=== PATIENT | female | born 1955 | race Hispanic/Latino ===

== ENCOUNTER 2018-09-07 04:05 | Inpatient (IN) | payer SELFPAY ==
[2018-09-07] VITALS (7 sets, daily range): BP systolic 124–174; BP diastolic 58–79
[~2018-09-07] VITALS: Ht 165.1 cm; Wt 77.1 kg
[2018-09-07] MEDS ORDERED: PANTOPRAZOLE 40 MG 10ML VIAL IV STA (04:13)
[2018-09-07] MEDS ORDERED: ONDANSETRON HCL INJ 2MG/ML 2ML 2 MG/ML VIAL IV STA (04:13)
[2018-09-07] MEDS ORDERED: SODIUM CHLORIDE 0.9% 1000ML 1,000 ML IV ONE (04:15)
[2018-09-07] MEDS ORDERED: LIDOCAINE VISC 2% SOLN 15 ML UDC PO ONE (04:15)
[2018-09-07] MEDS ORDERED: MAGNESIUM/ALUMINUM/SIMETHICONE 30 ML UDC PO ONE (04:15)
[2018-09-07] MEDS ORDERED: BELLADONNA ALK/PHENOBARBITAL 5 ML UDC PO ONE (04:15)
[2018-09-07 04:36] LABS: BASOPHILS % 0.3 % (0.0-1.0); EOSINOPHILS # (AUTO) 0.1 (0.0-0.4); EOSINOPHILS % 0.8 % (0.0-6.0); HEMATOCRIT 43.5 % (34.2-44.1); LYMPHOCYTES # (AUTO) 1.7 (1.0-3.2); MEAN CORPUSCULAR HEMOGLOBIN 30.8 pg (28-32); MEAN CORPUSCULAR HGB CONC 34.5 g/dL (31-35); MEAN CORPUSCULAR VOLUME 89.3 fL (81-99); MONOCYTES # (AUTO) 0.3 (0.2-0.8); MONOCYTES % 3.3 % (4.4-11.3); NEUTROPHILS # (AUTO) 5.7 (2.1-6.9); NEUTROPHILS % 73.1 % (38.7-80.0); PLATELET COUNT 217 x10e3/uL (140-360); RED BLOOD COUNT 4.87 x10e6/uL (3.6-5.1); RED CELL DISTRIBUTION WIDTH 12.7 % (11.7-14.4)
[2018-09-07 04:39] LABS: CLARITY,URINE CLEAR (CLEAR); COLOR,URINE YELLOW (YELLOW)
[2018-09-07 04:40] LABS: BILIRUBIN,URINE NEGATIVE (NEGATIVE); KETONES,URINE NEGATIVE (NEGATIVE); LEUKOCYTE ESTERASE ,URINE TRACE (NEGATIVE); NITRITE,URINE NEGATIVE (NEGATIVE); PROTEIN,URINE DIPSTICK NEGATIVE (NEGATIVE); URINE UROBILINOGEN 0.2 mg/dL (0.2 - 1)
[2018-09-07 04:54] LABS: ALANINE AMINOTRANSFERASE 24 IU/L (0-55); ALBUMIN 4.2 g/dL (3.5-5.0); ALBUMIN/GLOBULIN RATIO 1.1 (0.8-2.0); ALKALINE PHOSPHATASE 146 IU/L (40-150); AMYLASE 169 U/L (25-125); ANION GAP 12.6 mmol/L (8-16); BLOOD UREA NITROGEN 11 mg/dL (7-26); BUN/CREATININE RATIO 14 (6-25); CALCIUM 10.6 mg/dL (8.4-10.2); CARBON DIOXIDE 25 mmol/L (22-29); CHLORIDE 103 mmol/L (98-107); CREATINE KINASE 83 IU/L (29-168); CREATININE, SERUM 0.81 mg/dL (0.57-1.11); EST GLOMERULAR FILTRATION RATE > 60 ML/MIN (60-); GLUCOSE 142 mg/dL (74-118); LIPASE 52 U/L (8-78); POTASSIUM 3.6 mmol/L (3.5-5.1); SODIUM 137 mmol/L (136-145)
[2018-09-07 05:06] LABS: BACTERIA,URINE RARE /HPF
[2018-09-07 05:07] LABS: EPITHELIAL CELLS,URINE RARE /LPF
--- NOTE | 2018-09-07 06:57 | Diagnostic Imaging Report ---
HISTORY: ^UPPER ABD PAIN ^Y TECHNIQUE: Selected images from limited abdominal ultrasound provided for INTERPRETATION: COMPARISON: None. FINDINGS: Pancreas: Visualized portions are increased in echotexture without mass or ductal dilatation. Liver: Measures 15.1 cm in sagittal plane. The echotexture is normal. No mass in the visualized portions. Portal Vein: Measures 0.8 cm. Proper directional flow on spectral Doppler interrogation. Biliary Tree: Normal Gallbladder: Gallstone in the gallbladder neck measures 2.3 cm. The gallbladder wall measures 4 mm with small amount of pericholecystic fluid. Sonographic Masters sign is negative. CBD: 0.3 cm. Right Kidney: 10.8 cm in greatest length. The echotexture is normal. There is no evidence for mass. There is no collecting system dilatation or evidence of obstruction. No renal calculi evident. No adjacent free fluid or fluid collections. Visualized IVC and aorta are normal. There is no free fluid. IMPRESSION: 1. Gallstone in the gallbladder neck with gallbladder wall thickening and small amount of pericholecystic fluid concerning for acute cholecystitis. No intrahepatic or extra hepatic biliary ductal dilatation. 2. Pancreas lipomatosis. Signed by: Dr. Virginia Graham MD on 09/07/2018 6:54 AM
[2018-09-07] MEDS ORDERED: HYDROMORPHONE 1MG/1ML INJ IV PRN (07:15)
[2018-09-07] MEDS ORDERED: ONDANSETRON HCL INJ 2MG/ML 2ML 2 MG/ML VIAL IV PRN ×2 (07:15→17:30)
--- OUTSIDE RECORDS SUMMARY | 2018-09-07 07:24 | XMS REPORT ---
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 Allergies, Adverse Reactions, Alerts This patient has no known allergies or adverse reactions. Medications This patient has no known medications. Results Test Description Test Time Test Comments Text Results Atomic Results Result Comments US GALLBLADDER 2018-09-07 06:49:00 [place] [address] Patient Name: TOMÁS SWANSON MR #: [id number] : 1955 Age/Sex: 63/F Req #: [id number] Adm Physician: Ordered by: AZAM QUINTANILLA MD Report #: [id number] Location: ER Room/Bed: Procedure: [id number] US/US GALLBLADDER Exam Date: Exam Time: REPORT STATUS: Signed HISTORY: UPPER ABD PAIN Y TECHNIQUE: Selected images from limited abdominal ultrasound provided for INTERPRETATION: COMPARISON: None. FINDINGS: Pancreas: Visualized portions are increased in echotexture without mass or ductal dilatation. Liver: Measures 15.1 cm in sagittal plane. The echotexture is normal. No mass in the visualized portions. Portal Vein: Measures 0.8 cm. Proper directional flow on spectral Doppler interrog ation. Biliary Tree: Normal Gallbladder: Gallstone in the gallbladder neck measures 2.3 cm. The gallbladder wall measures 4 mm with small amount of pericholecystic fluid. Sonographic Masters sign is negative. CBD: 0.3 cm. Right Kidney: 10.8 cm in greatest length. The echotexture is normal. There is no evidence for mass. There is no collecting system dilatation or evidence of obstruction. No renal calculi evident. No adjacent free fluid or fluid collections. Visualized IVC and aorta are normal. There is no free fluid. IMPRESSION: 1. Gallstone in the gallbladder neck with gallbladder wall thickening and small amount of pericholecystic fluid concerning for acute cholecystitis. No intrahepatic or extra hepatic biliary ductal dilatation. 2. Pancreas lipomatosis. Signed by: Dr. Nazario Graham MD on 09/07/2018 6:54 AM Dictated By: NAZARIO GRAHAM MD 3 Transcribed By: MARION on 09/07/18653 COPY TO: AZAM QUINTANILLA MD
[2018-09-07] MEDS ORDERED: HYDROMORPHONE 2MG/ML 2 MG/ML ML IV PRN (07:45)
[2018-09-07] MEDS: CEFOXITIN 1GM/ NS 50ML 50 ML IV SCH ×3 (08:45→21:13)
[2018-09-07] MEDS: SODIUM CHLORIDE 0.9% 1000ML 1,000 ML IV SCH ×3 (08:45→23:46)
[2018-09-07] MEDS: METRONIDAZOLE 500MG/NS 100ML IV SCH ×2 (09:31→12:08)
--- NOTE | 2018-09-07 12:00 | NUR ---
Received patient from ER. Patient A/O X3, even respirations on RA. Bowel sounds active, skin intact, no edema. Right AC 20 gauge IV with NS @ 125 mls/hr. Patient NPO at this time until Dr. Collier makes decision on POC. Patient is ambulatory with standby assist. Primarily vietnamese speaking with daughter at bedside. Discomfort in abdomen, pain 2/10. Call light in reach, will continue to monitor.
--- NOTE | 2018-09-07 15:40 | NUR ---
Patient on regular diet at this time and will be NPO at midnight for procedure tomorrow.
[2018-09-07] MEDS ORDERED: HYDRALAZINE HCL 20 MG/ML VIAL IV PRN (17:30)
[2018-09-07] MEDS ORDERED: ACETAMINOPHEN 325 MG TAB PO PRN (17:30)
[2018-09-07] MEDS ORDERED: ENALAPRILAT DIHYDRATE 1.25 MG/ML 2ML VIAL IV PRN (17:30)
[2018-09-07] MEDS: FAMOTIDINE 20 MG/2 ML VIAL IV SCH (17:44)
--- NOTE | 2018-09-07 23:51 | Consultation ---
DATE OF CONSULTATION: 09/07/2018 Consultation Note HISTORY OF PRESENT ILLNESS: The patient is a 63-year-old female, presents with complaints of epigastric abdominal pain, started last evening. She says the pain is better now. She went to the emergency room, where an evaluation with ultrasound of the gallbladder revealed a large gallstone with the stone impacted in the gallbladder neck. PAST MEDICAL HISTORY: Significant only for hypertension. She has had previous hysterectomy. ALLERGIES: THERE WERE NO KNOWN ALLERGIES. MEDICATIONS: No current medications. FAMILY HISTORY: Noncontributory. SOCIAL HISTORY: The patient does not smoke cigarettes or drink alcohol. REVIEW OF SYSTEMS: As stated above, otherwise it was negative. PHYSICAL EXAMINATION: GENERAL: The patient is awake and alert, in no distress. VITAL SIGNS: Normal. HEENT: Reveals no scleral icterus. NECK: No masses. LUNGS: Equal breath sounds. Clear bilaterally. CARDIAC: Regular rate and rhythm with no murmur. ABDOMEN: Mildly tender in the epigastrium. There is no mass. There is no organomegaly. There are no signs of peritonitis. EXTREMITIES: Have no edema. NEUROLOGIC: Intact. ASSESSMENT: This is a 63-year-old female, who has findings suggestive of [id number] cholecystitis with cholelithiasis. She will actually benefit from cholecystectomy, the plan is scheduled for tomorrow. Procedure was explained to the patient, including risks, benefits, and alternatives. She understands. She has had opportunity to ask questions. Thank you for asking me to see Ms. Garvin. MD CARMEN Toscano/AUGUSTINE /[id number]
[2018-09-08] VITALS (7 sets, daily range): BP systolic 130–172; BP diastolic 63–76
--- NOTE | 2018-09-08 00:20 | NUR ---
MAINTAINING NPO FOR THE PROCEDURE.STABLE CONDITION.AAOX4.AMBULATES.VOIDED.BED LOCKED AND IN LOWEST POSITION.PHONE AND CALL LIGHT WITHIN REACH.INSTRUCTED TO CALL FOR ASSISTANCE NEEDED.FAMILY MEMBER AT BED SIDE.
[2018-09-08] MEDS: CEFOXITIN 1GM/ NS 50ML 50 ML IV SCH ×3 (05:32→21:26)
[2018-09-08 06:06] LABS: BASOPHILS % 0.4 % (0.0-1.0); EOSINOPHILS # (AUTO) 0.1 (0.0-0.4); EOSINOPHILS % 1.4 % (0.0-6.0); HEMATOCRIT 37.5 % (34.2-44.1); HEMOGLOBIN 12.9 g/dL (12.0-16.0); LYMPHOCYTES # (AUTO) 1.9 (1.0-3.2); LYMPHOCYTES % 39.5 % (18.0-39.1); MEAN CORPUSCULAR HEMOGLOBIN 31.5 pg (28-32); MEAN CORPUSCULAR HGB CONC 34.4 g/dL (31-35); MEAN CORPUSCULAR VOLUME 91.7 fL (81-99); MONOCYTES # (AUTO) 0.3 (0.2-0.8); MONOCYTES % 5.6 % (4.4-11.3); NEUTROPHILS # (AUTO) 2.5 (2.1-6.9); NEUTROPHILS % 52.7 % (38.7-80.0); PLATELET COUNT 187 x10e3/uL (140-360); RED BLOOD COUNT 4.09 x10e6/uL (3.6-5.1)
[2018-09-08 06:28] LABS: ALANINE AMINOTRANSFERASE 16 IU/L (0-55); ALBUMIN 3.2 g/dL (3.5-5.0); ALBUMIN/GLOBULIN RATIO 1.1 (0.8-2.0); ALKALINE PHOSPHATASE 101 IU/L (40-150); AMYLASE 139 U/L (25-125); BLOOD UREA NITROGEN 12 mg/dL (7-26); BUN/CREATININE RATIO 14 (6-25); CALCIUM 8.4 mg/dL (8.4-10.2); CARBON DIOXIDE 24 mmol/L (22-29); CHLORIDE 113 mmol/L (98-107); CREATININE, SERUM 0.83 mg/dL (0.57-1.11); EST GLOMERULAR FILTRATION RATE > 60 ML/MIN (60-); GLUCOSE 107 mg/dL (74-118); LIPASE 45 U/L (8-78); SODIUM 141 mmol/L (136-145)
--- NOTE | 2018-09-08 06:50 | NUR ---
REPORT GIVEN TO THE ONCOMING RN.WALKING ROUNDS DONE.STABLE CONDITION.
--- NOTE | 2018-09-08 07:14 | NUR ---
Received patient awake in bed at this time, no signs of distress. Call light in reach, will continue to monitor.
[2018-09-08] MEDS: FAMOTIDINE 20 MG/2 ML VIAL IV SCH ×2 (08:02→17:38)
[2018-09-08] MEDS: SODIUM CHLORIDE 0.9% 1000ML 1,000 ML IV SCH ×2 (09:37→17:02)
--- NOTE | 2018-09-08 10:30 | NUR ---
Patient A/O X3, even respirations unlabored on RA. Bowel sounds hypoactive, skin intact, no edema. Right AC 20 gauge IV with NS @ 100mls/hr. Patient is ambulatory and voids in the toilet. Patient is NPO at this time for procedure this afternoon.
--- NOTE | 2018-09-08 13:38 | NUR ---
Patient left for procedure at this time, no signs of distress.
[2018-09-08] MEDS ORDERED: BUPIVACAINE HCL 0.5% INJ 30 ML VIAL INJ ONE (14:18)
--- NOTE | 2018-09-08 14:57 | NUR ---
GAVE PACKET OF INFORMATION WITH COMM[employer]ITY [employer] FOR ASSISTANCE WITH LOW TO NO INCOME TO PATIENT. RESOURCES THAT PATIENT MAY BE ABLE TO FOLLOW UP UPON DISCHARGE. PT EDUCATED ON EACH RESOURCE AND UNDERSTANDING HOW TO FOLLOW UP TO SEE IF QUALIFIED FOR EACH RESOURCE.
[2018-09-08] MEDS ORDERED: HYDROCODONE/APAP 5MG-325MG TAB PO PRN (15:00)
[2018-09-08] MEDS ORDERED: ONDANSETRON HCL INJ 2MG/ML 2ML 2 MG/ML VIAL IV PRN (15:00)
[2018-09-08] MEDS ORDERED: MORPHINE SULFATE INJ 4 MG/ML INJ 1ML IV PRN (15:00)
[2018-09-08] MEDS ORDERED: SUGAMMADEX SODIUM 200 MG/2 ML VIAL IV ONE (15:10)
--- NOTE | 2018-09-08 16:16 | NUR ---
Patient back from procedure at this time. 4 puncture sites on abdomen, dried blood on band-aid. SCD's in place, call light in reach, will continue to monitor.
--- NOTE | 2018-09-08 16:35 | NUR ---
Removed right AC IV, new right hand IV started in OR.
[2018-09-08] MEDS ORDERED: DESFLURANE 240 ML BTL INH ONE (17:34)
[2018-09-08] MEDS ORDERED: PROPOFOL IV EMULSION 10 MG/ML 20 ML VIAL ONE (17:34)
[2018-09-08] MEDS ORDERED: ONDANSETRON HCL INJ 2MG/ML 2ML 2 MG/ML VIAL ONE (17:34)
[2018-09-08] MEDS ORDERED: LABETALOL HCL 5 MG/ML 20ML VIAL ONE (17:34)
[2018-09-08] MEDS ORDERED: LIDOCAINE HCL 2% LOCAL INJ 5 ML SDV VIAL INJ ONE (17:34)
[2018-09-08] MEDS ORDERED: ROCURONIUM BROMIDE 10 MG/ML 5ML VIAL ONE (17:34)
[2018-09-08] MEDS ORDERED: DEXAMETHASONE SOD PHOS INJ 4 MG/ML VIAL ONE (17:34)
[2018-09-08] MEDS ORDERED: FENTANYL CITRATE/PF 100MCG/2 ML INJ ONE (18:39)
--- NOTE | 2018-09-08 22:57 | Operative Report ---
DATE OF PROCEDURE: 09/08/2018 SURGEON: Steve Collier MD PREOPERATIVE DIAGNOSES: 1. Acute cholecystitis. 2. Cholelithiasis. POSTOPERATIVE DIAGNOSES: 1. Acute cholecystitis. 2. Cholelithiasis. PROCEDURE: Diagnostic laparoscopy and laparoscopic cholecystectomy. CUSTOMS COMPLIANCE SPECIALIST: None. ANESTHESIA: General. INDICATIONS AND FINDINGS: The patient is a 63-year-old female, who was admitted to the hospital with complaints of epigastric abdominal pain. Workup revealed gallstones and signs of acute cholecystitis. large stone. Cystic duct was about 3 mm in diameter. Common bile duct was about 5 mm in diameter. Liver, stomach, and lower abdomen all appeared normal. TECHNIQUE: After adequate general endotracheal anesthesia with the patient in supine position, the abdomen was prepped and draped in sterile fashion with ChloraPrep solution. Skin in the umbilicus was infiltrated with 0.5% Marcaine. Incision was made in the umbilicus. Abdominal wall was elevated and Veress needle was introduced. Pneumoperitoneum was then created. A 10-mm trocar and cannula were then passed through the umbilical wound. Laparoscopic camera was introduced. Initial laparoscopy revealed gallbladder to be distended and mildly edematous. Liver, stomach, and lower abdomen all appeared normal. A 10-mm trocar and cannula were placed in the epigastrium and two 5-mm trocars and cannula were placed in the right upper quadrant. These were placed under direct vision. Fundus of the gallbladder was grasped and retracted superiorly. Next, the gallbladder was grasped and retracted laterally. Peritoneum over the neck of the gallbladder was incised and the gallbladder-cystic duct junction was dissected free. Cystic artery was also dissected free. The neck of the gallbladder was completely dissected free. Cystic arteries were divided between hemoclips as well as the gallbladder. Cystic duct was also divided between hemoclips with 3 clips placed on the common bile duct side. There was a posterior branch of the cystic artery, which was also divided between hemoclips as well as the gallbladder. The gallbladder was then dissected free from the liver using scissors and electrocautery. Once it was entirely freed, it was placed into an Endopouch and brought through the epigastric cannula stone. Gallbladder bed was inspected for hemostasis, which was seen to be adequate. It was irrigated with saline. All fluid was aspirated and inspected for hemostasis, which was seen to be adequate. Instruments and cannulas were then removed. Pneumoperitoneum was evacuated. Wounds were then closed. Fascia in the umbilical and epigastric wound closed with 0 Vicryl. Skin of all wounds was closed with elham. Sterile dressings were applied to each wound. The patient tolerated the procedure well. Estimated blood loss was 20 mL. There were no complications. All counts were correct and the patient was taken to the recovery room in satisfactory condition. MD CARMEN Toscano/MODL /[id number]
[2018-09-09] VITALS: BP 160/74
[2018-09-09] MEDS: SODIUM CHLORIDE 0.9% 1000ML 1,000 ML IV SCH ×2 (01:15→10:53)
[2018-09-09 04:00] VITALS: BP 143/76
[2018-09-09] MEDS: CEFOXITIN 1GM/ NS 50ML 50 ML IV SCH ×2 (05:25→14:00)
--- NOTE | 2018-09-09 06:50 | NUR ---
Report given to the oncoming rn.walking rounds done.stable condition.
[2018-09-09 07:55] VITALS: BP 156/76
[2018-09-09] MEDS ORDERED: FAMOTIDINE 20 MG/2 ML VIAL IV SCH (09:00)
[2018-09-09 10:00] VITALS: BP 161/74
--- NOTE | 2018-09-09 12:30 | NUR ---
MD RUBALCAVA INTO SEE PT, DISCUSSED DISCHARGE INSTRUCTIONS
[2018-09-09 13:10] VITALS: BP 161/74
[2018-09-09] MEDS ORDERED: TYLENOL WITH C1 EACH PO (13:16)
[2018-09-09] MEDS ORDERED: PROMETHAZINE HC25 M1 PO (13:17)
--- NOTE | 2018-09-09 14:05 | NUR ---
WHEELED OFF UNIT VIA WC FOR DISCHARGE, NO CHANGE IN CONDITION, CALL LIGHT WITHIN REACH
== END 2018-09-09 13:51 | disposition home or self-care (01) | DRG 419 ==
LOC: ER 04:05 → ERHOLD 07:22 → MED/SURG 11:48
PROVIDERS: ADMIT Internal Medicine; ATTEND Internal Medicine
PROC: 0FT44ZZ Resection of Gallbladder, Percutaneous Endoscopic Approach (ICD-10-PCS; principal; 2018-09-07)
DX: K80.12 Calculus of gallbladder with acute and chronic cholecystitis without obstruction (principal); I10 Essential (primary) hypertension
CPT/HCPCS: 36415; 76705; 80053; 81001; 82150; 82550; 82553; 83690; 84484; 85025; 88304; 93005; 96374; 96375; 99284; J1100; J2001; J2405; J7030

== ENCOUNTER → 2020-09-26 | Outpatient (CLI) | payer OTHER ==
[~2020-09-26] MED LIST: COVID-19 VACC, MRNA(MODERNA)/PF 100 MCG/0.5 ML VIAL IM ONE; PROMETHAZINE HC25 M1 PO; TYLENOL WITH C1 EACH PO
== END | disposition home or self-care (01) ==
LOC: EDBD → VACCPMC 17:40
DX: Z23 Encounter for immunization (principal); Z20.822 Contact with and (suspected) exposure to COVID-19
CPT/HCPCS: 0011A; 91301

== ENCOUNTER → 2020-10-24 | Outpatient (CLI) | payer OTHER | END | disposition home or self-care (01) | LOC: VACCPMC 13:40 | DX: Z23 Encounter for immunization (principal); Z20.822 Contact with and (suspected) exposure to COVID-19 | CPT/HCPCS: 91301 ==